=== PATIENT | female | born 1965 | race Caucasian/White ===

== ENCOUNTER 2019-04-25 16:16 | Outpatient (CLI) | payer OTHER, SELFPAY ==
--- NOTE | ~2019-04-25 | MM_ITS ---
EXAMINATION: MM screening [facility] BI w [facility] HISTORY: Screening mammogram, family history of breast cancer in her mother. TECHNIQUE: Craniocaudal and mediolateral oblique 3-D tomosynthesis images were obtained and synthetic 2-D images were generated. CAD analysis was submitted and interpreted. COMPARISON: 03/31/2018, 03/30/2017, 03/28/2016, 03/10/1915 BREAST PARENCHYMAL COMPOSITION: The breasts are almost entirely fatty. FINDINGS: There is unchanged asymmetry in the subareolar aspect of the right breast on the craniocaud al view. There is no evidence of suspicious mass, calcification, or architectural distortion to sugge st malignancy in either breast. There has been no suspicious interval change. IMPRESSION: 1. No mammographic evidence of malignancy. 2. Recommend routine screening mammography in one year. BI-RADS Category 2: Benign finding(s). Reviewed, dictated and finalized at location A. TH INFORMATION MANAGER
== END 2019-04-25 16:17 | disposition home or self-care (01) ==
LOC: ANHIMG 16:23
PROVIDERS: PCP Family Medicine; Visit Provider Obstetrics & Gynecology
DX: Z12.31 Encounter for screening mammogram for malignant neoplasm of breast (principal)
CPT/HCPCS: 77063; 77067

== ENCOUNTER 2019-12-01 00:28 | Outpatient (CLI) | payer OTHER, SELFPAY ==
[2019-12-02 13:40] LABS: SARS-CoV-2 RNA PCR Negative
== END 2019-12-01 00:29 | disposition home or self-care (01) ==
LOC: ANHCOVIDDT 00:29
PROVIDERS: PCP Family Medicine; Visit Provider Obstetrics & Gynecology
DX: Z20.828 Contact with and (suspected) exposure to other viral communicable diseases (principal)
CPT/HCPCS: 87635; C9803; U0003

== ENCOUNTER 2019-12-01 08:23 | Outpatient (CLI) | payer OTHER, SELFPAY ==
[2019-12-01 08:53] LABS: Hematocrit 41.4 % (37.0-47.0); Hemoglobin 13.4 g/dL (12.0-15.0)
== END 2019-12-01 08:24 | disposition home or self-care (01) ==
PROVIDERS: PCP Family Medicine; Visit Provider Obstetrics & Gynecology
DX: N95.0 Postmenopausal bleeding (principal)
CPT/HCPCS: 36415; 85014; 85018

== ENCOUNTER 2019-12-04 01:38 | Day surgery (SDC) | payer OTHER, SELFPAY ==
[2019-11-29 17:11] VITALS: BMI 32.5
--- NOTE | 2019-11-30 08:00 | PM.IMHP ---
H&P: HPI History of Present Illness Date/Time: 11/30/19 08:00 Chief complaint: Postmenopausal Bleeding Narrative: Corrina Otto is a 54 year old female who is admitted for hysteroscopy dilatation curettage secondary to postmenopausal bleeding. Her last menstrual period was a few years ago she noticed some bleeding. She underwent ultrasound which showed an irregular endometrium which could not rule out precancerous or cancerous change the uterus. She will proceed with hysteroscopy dilatation curettage and had all questions answered. She received the [employer] handout entitled hysteroscopy and dilatation curettage respectively Review of Systems Review of Systems: All systems reviewed & are unremarkable except as noted in HPI and below PMFSH Past Medical History Medical History Overweight Surgical History Surgical History History of cholecystectomy 2007 Family History Family History Other Depression Family history of coronary artery disease Hypertension Social History Social History Smoking status: Never smoker Alcohol intake: never Substance use: never Spiritual care concerns: No Meds Home Medications and Allergies Home Medications Medication Instructions Recorded Confirmed Type aspirin 81 mg tablet,delayed 81 mg PO DAILY 11/15/19 11/29/19 History release cranberry conc-ascorbic acid 1 cap PO DAILY 11/29/19 11/29/19 History [Cranberry Concentrate] loratadine [Claritin] 10 mg PO DAILY 11/29/19 11/29/19 History lysine 1,000 mg PO DAILY 11/29/19 11/29/19 History multivitamin with minerals [Daily 1 tablet PO DAILY 11/29/19 11/29/19 History Multivitamin-Minerals] Allergies Allergy/AdvReac Type Severity Reaction Status Date / Time No Known Allergies Allergy Mild Verified 11/15/19 11:59 Exam Const: General: no acute distress Eyes: General: appearance normal, both eyes and all related structures Neck: Neck: supple and no JVD Thyroid: thyroid normal Resp: Effort & Inspection: normal respiratory effort Auscultation: clear to auscultation bilaterally Cardio: Rate: regular rate Rhythm: regular rhythm GI: Inspection: non-distended GI Palp: Yes Soft to palpation, No Tenderness to palpation present (GI) and No Guarding due to palpation present (GI) Auscultation: normal bowel sounds : General: Yes bladder normal to palpation External Female Exam: normal external appearance Speculum Exam - Vagina: normal vaginal discharge and No vaginal bleeding Speculum Exam - Cervix: nontender Bimanual exam- vagina & uterus: bladder normal to palpation and No Cervical tenderness present OB/external & speculum: No vaginal bleeding Skin: General skin exam: no rashes or lesions noted Extrem: General: normal to inspection and no edema Psych: Mental Status: mental status grossly normal Affect: normal affect Assessment and Plan Additional Plan impression: postmenopausal thebleeding Plan: The hysteroscopy/ dilatation curettage
--- NOTE | 2019-12-04 05:41 | WPDHPUPDATE1 ---
History and Physical Update Update Date/Time: 12/04/19 05:41 History and Physical has been reviewed, including an updated exam of the patient. There are NO changes in the patient's condition. Risks, benefits, and alternatives have been discussed and questions answered. Patient agrees to proceed with procedure.
[2019-12-04] MEDS: ACETAMINOPHEN 500 MG TABLET 1000 MG PO (07:00)
[2019-12-04] MEDS: LACTATED RINGERS 1,000 ML 30 ML IV CONT (07:00)
--- NOTE | 2019-12-04 07:12 | WPDANESEPPF ---
Anes - Initial Pre Proc Eval Procedure: Operation Date: 12/04/19 08:30 Proposed Procedures p Hysteroscopy, Dilation And Curettage - Mayito Barker MD Date/Time: 12/04/19 07:12 Surgeon: Mayito Barker MD Pre Op Diagnosis: Postmenopausal Bleeding Patient Data Age: 54 Gender: F Height: 1.57 m Weight: 80.7 kg Allergies Allergy/AdvReac Type Severity Reaction Status Date / Time No Known Allergies Allergy Mild Verified 12/04/19 06:33 Home Medications Medication Instructions Recorded Confirmed Type aspirin 81 mg tablet,delayed 81 mg PO DAILY 11/15/19 12/04/19 History release cranberry conc-ascorbic acid 1 cap PO DAILY 11/29/19 12/04/19 History [Cranberry Concentrate] loratadine [Claritin] 10 mg PO DAILY 11/29/19 12/04/19 History lysine 1,000 mg PO DAILY 11/29/19 12/04/19 History multivitamin with minerals [Daily 1 tablet PO DAILY 11/29/19 12/04/19 History Multivitamin-Minerals] hydrocodone-acetaminophen [[place]] 1 tablet PO Q4H PRN #20 tablet 12/04/19 Rx Patient hx anesthesia problems: none Family hx anesthesia problems: none PMFSH Past Medical History Medical History Overweight Surgical History Surgical History History of cholecystectomy 2007 Family History Family History Other Depression Family history of coronary artery disease Hypertension Social History Social History Smoking status: Never smoker Alcohol intake: never Substance use: never Living arrangements: with family Spiritual care concerns: No Anes - Eval Final PreProcedure Day of Procedure 12/04/19 07:12 Patient weight: obese Heart: regular rate and rhythm Lungs: clear to auscultation and normal air movement Airway: Mallampati scale class II Neurological: alert and oriented Last oral intake: >/= 8 hours ASA classification: II Emergent: no Anesthetic plan: proceed Anesthesia type and monitoring: general GIVS and standard monitoring Informed Consent: The patient's anesthetic plan and its attendant risks and benefits were discussed with the patient/family/POA. Questions were solicited and answers provided to the satisfaction of the patient/family/POA.
[2019-12-04 07:14] VITALS: BP 126/78; PULSE 71; RESP 16; TEMP 36.6; O2SAT 98
--- NOTE | 2019-12-04 08:33 | PM.PROC ---
Procedure Note - Detailed Date of procedure: 12/04/19 Pre-op diagnosis: Postmenopausal Bleeding Surgeon: Mayito Barker MD postop diagnosis: Postmenopausal bleeding Procedure: Hysteroscopy/ dilatation curettage Anesthesia: IV sedation local Findings: Irregular endometrium. Normal-appearing endometrial canals EBL: 5Cc Complications: None Description of procedure: The patient was prepped draped in the normal sterile fashion and placed in the dorsal lithotomy position. Under excellent IV sedation weighted speculum placed in posterior fornix vagina. Anterior lip of the cervix was grasped with a single-tooth tenaculum. 2.5cc of 1% xylocaine anesthesia placed at 2, 4, 8, 10:00 a.m. of the cervix. The uterus sounded to 9cm. Serial dilatation with fragmented dilators performed. This was followed by passage of the 5mm visualizing hysteroscope using normal saline as visualizing medium. Irregular endometrial tissue was seen each fallopian tube os could be seen. No other abnormalities were seen. The uterus was scraped over the entire 360? until a good grating sound was heard. When no further tissue could be removed the instruments removed. All sponge, needle, instrument counts were correct. There were no immediate complications
[2019-12-04 08:36] VITALS: BP 111/73; PULSE 75; RESP 10; O2SAT 97
[2019-12-04 09:00] VITALS: BP 107/75; PULSE 68; RESP 14; O2SAT 98
[2019-12-04 09:30] VITALS: BP 127/66; PULSE 50; RESP 14
--- NOTE | 2019-12-04 10:01 | SUR.PHASEII ---
[address] RAMSEY- AWARE PRESCRIPTION FOR [place] WAS NOT ON PTS CHART. STATES IF PT NEEDS A NARCOTIC PAIN PRESCRIPTION TO HAVE HER CALL HIM. PT AWARE AND OKAY WITH THIS PLAN. PT STATES SHE DOESN'T THINK SHE WILL NEED A PRESCRIPTION FOR PAIN MEDICATION. INFORMED PTS SPOUSE ALISHA PER PHONE ALSO ABOUT PLAN.
== END 2019-12-04 09:58 | disposition home or self-care (01) ==
PROVIDERS: PCP Family Medicine; Visit Provider Obstetrics & Gynecology
PROC: 0U5B8ZZ Destruction of Endometrium, Via Natural or Artificial Opening Endoscopic (ICD-10-PCS; CPT 58563; principal; 2019-12-04 08:30)
DX: N95.0 Postmenopausal bleeding (principal); N85.8 Other specified noninflammatory disorders of uterus; E66.9 Obesity, unspecified; Z68.32 Body mass index [BMI] 32.0-32.9, adult
CPT/HCPCS: 58558; 88305; A9270; J2250; J2704; J3010; J7030; J7120